=== PATIENT | female | born 1955 | race Caucasian/White ===

== ENCOUNTER 2020-08-21 08:57 | Outpatient (CLI) | payer OTHER | END 2020-08-21 08:58 | disposition home or self-care (01) | LOC: CSHMAMMO 08:57 | PROVIDERS: ATTEND Nurse Practitioner Family | DX: M47.22 Other spondylosis with radiculopathy, cervical region (principal); M81.0 Age-related osteoporosis without current pathological fracture | CPT/HCPCS: 77080 ==

== ENCOUNTER 2024-04-15 10:54 | Outpatient (CLI) | payer MEDICARE | END 2024-04-15 10:55 | disposition home or self-care (01) | LOC: CSHMAMMO 10:54 | PROVIDERS: ATTEND Family Medicine | DX: M85.89 Other specified disorders of bone density and structure, multiple sites (principal); M81.0 Age-related osteoporosis without current pathological fracture | CPT/HCPCS: 77080 ==